=== PATIENT | male | born 1970 | race Caucasian/White ===

== ENCOUNTER → 2017-04-08 | Outpatient (CLI) | payer OTHER ==
[~2017-04-08] MED LIST: AMLO10TA2 PO; HYDR25TA4 PO; IBUP-1050 PO; LEVO50TA PO; LISI-461 PO; PANT40TA PO; SIMV10TA2 PO
--- NOTE | 2017-04-08 12:44 | DIAGNOSTIC IMAGING REPORT ---
SCROTAL ULTRASOUND CLINICAL HISTORY: Right testicular pain. COMPARISON STUDY: Scrotal ultrasound January 20, 2013. TECHNIQUE: Grayscale and color and duplex Doppler sonography of the scrotum was performed. FINDINGS: The right testis measures 3 x 2.4 x 2.1 cm and the left measures 4.2 x 2.7 x 2.4 cm. There is no testicular mass. Color flow within each testis is symmetric. Slight heterogeneity of the right testis is unchanged since exam of January 20, 2013. There is no evidence of epididymitis. A 3 mm right tunica albuginea cyst is of no clinical significance. IMPRESSION: 1. No change in appearance of the testes since prior exam. No evidence of testicular torsion. No testicular mass. 2. Mild right testicular atrophy with heterogeneity. Electronically signed by: Rafael Howe M.D. 04/08/2017 12:42 PM Dictated Date/Time: 04/08/2017 12:38 PM
== END | disposition home or self-care (01) ==
LOC: C.ULTR 12:03
PROVIDERS: ATTEND Internal Medicine
DX: N50.811 Right testicular pain (principal)